=== PATIENT | male | born 1985 | race Caucasian/White ===

== ENCOUNTER 2021-05-19 15:22 | Emergency (ER) | payer OTHER ==
[~2021-05-19] VITALS: Ht 170.2 cm; Wt 75.0 kg
[2021-05-19 15:23] VITALS: BP 138/85
[2021-05-19] MEDS ORDERED: CYCL-707 PO (15:34)
[2021-05-19] MEDS ORDERED: IBUP80TA PO (15:34)
[2021-05-19] MEDS ORDERED: ACET1TAB55 PO (15:34)
[2021-05-19] MEDS ORDERED: MEDR4PAK PO (18:54)
== END 2021-05-19 19:40 | disposition home or self-care (01) ==
LOC: M ED 15:22
DX: M54.42 Lumbago with sciatica, left side (principal); Z79.899 Other long term (current) drug therapy

== ENCOUNTER 2021-05-22 11:14 | Emergency (ER) | payer OTHER ==
[~2021-05-22] VITALS: Ht 170.2 cm; Wt 75.9 kg
[~2021-05-22 11:14] MED LIST: ACET1TAB55 PO; CYCL-707 PO; IBUP80TA PO; MEDR4PAK PO
[2021-05-22 13:59] LABS: BASO % 0.3 % (0.0-1.0); EOS % 0.1 % (0.0-3.0); HEMOGLOBIN 18.3 g/dl (13.5-17.5); LYMPH # 0.8 10^3/uL (1.5-5.0); LYMPH % 8.9 % (24.0-44.0); MEAN CORPUSCULAR HEMOGLOBIN 31.1 pg (27.0-33.0); MEAN CORPUSCULAR HGB CONC 35.9 g/dl (32.0-36.5); MEAN CORPUSCULAR VOLUME 86.6 fl (80.0-96.0); MONO # 0.2 10^3/uL (0.0-0.8); MONO % 2.5 % (2.0-8.0); NEUTROPHILS # 7.6 10^3/uL (1.5-8.5); PLATELET COUNT, AUTOMATED 216 10^3/uL (150-450); RED BLOOD COUNT 5.89 10^6/uL (4.30-6.10); WHITE BLOOD COUNT 8.7 10^3/uL (4.0-10.0)
[2021-05-22 14:24] LABS: ERYTHROCYTE SEDIMENTATION RATE 1 mm/hr (0-15)
--- NOTE | 2021-05-22 16:27 | REPVR ---
PROCEDURE INFORMATION: Exam: MR Lumbar Spine Without Contrast. Exam date and time: 05/22/2021 3:50 PM Age: 36 years old Clinical indication: Low back pain; Additional info: Left radicular symptoms and l3l4 point tenderness TECHNIQUE: Imaging protocol: Multiplanar magnetic resonance images of the lumbar spine without contrast. COMPARISON: No relevant prior studies available. FINDINGS: Vertebrae: There appears to be a transitional vertebral segment. There is a rudimentary disc which will be labeled L5-S1. With this numbering scheme there is a large disc herniation at the L4-L5 level with a free fragment extending inferiorly from the disc space. An annular tear is apparent. The large disc fragment measures approximately 2.6 cm cc x 1.1 cm AP x 2.2 cm in width and extends inferiorly to the L5-S1 level. The disc herniation compresses the thecal sac and the exiting left L5 nerve root as well as the sacral nerve roots within the thecal sac displacing the thecal sac posteriorly and rightward. Since it extends to the L5-S1 level and also compresses the exiting left S1 nerve root. The remainder of the lumbar spine levels are normal in appearance. Spinal cord: The conus medullaris is normal appearance at the T12-L1 level. Discs/Spinal canal/Neural foramina: See "Vertebrae" finding. Soft tissues: Unremarkable. IMPRESSION: There is a very large left paracentral disc herniation at the L4-L5 level extending inferiorly to the L5-S1 level. There appear to be free disc fragments together measuring 2.6 x 1.1 x 2.2 cm. The disc herniation compresses the left L5 nerve root at the L4-L5 level and extending inferiorly to L5-5 S1 compresses the exiting left S1 nerve root as well as the thecal sac. Electronically signed by: Leilani Albert On 05/22/2021 16:26:36 PM
--- NOTE | 2021-05-22 16:29 | REPVR ---
PROCEDURE INFORMATION: Exam: MR Thoracic Spine Without Contrast Exam date and time: 05/22/2021 3:50 PM Age: 36 years old Clinical indication: Pain in thoracic spine; With radiculopathy; Left; Additional info: Left radicular symptoms and l3l4 point tenderness TECHNIQUE: Imaging protocol: Multiplanar magnetic resonance images of the thoracic spine without contrast. COMPARISON: No relevant prior studies available. FINDINGS: Vertebrae: Unremarkable. Spinal cord: Normal signal. No cord compression. Discs/Spinal canal/Neural foramina: No significant disc disease. No significant spinal canal stenosis. Soft tissues: Unremarkable. IMPRESSION: No abnormality is seen in the thoracic spine. Please see accompanying lumbar spine MRI report. Electronically signed by: Leilani Albert On 05/22/2021 16:29:08 PM
[2021-05-22] MEDS ORDERED: LYRI75CA PO (17:23)
[2021-05-22] MEDS ORDERED: PREGABALIN 75 MG CAP(LYRICA) PO ONE (17:35)
[2021-05-22 18:00] VITALS: BP 144/78
[2021-05-25 13:11] LABS: ANTINUCLEAR ANTIBODIES DIRECT Negative (Negative)
== END 2021-05-22 18:15 | disposition home or self-care (01) ==
LOC: M ED 11:14
DX: M51.26 Other intervertebral disc displacement, lumbar region (principal); M54.32 Sciatica, left side; M54.16 Radiculopathy, lumbar region

== ENCOUNTER → 2023-12-28 | Outpatient (REF) | payer OTHER ==
[~2023-12-28] MED LIST changes: +LYRI75CA PO
[2023-12-28 12:03] LABS: SEMEN APPEARANCE OPAQUE (OPAQUE); SEMEN VISCOSITY LIQUID (LIQUID); SEMEN VOLUME 3.7 ml (2.0-5.0); SEMEN pH 8.5 (7.0-8.0)
[2023-12-28 12:04] LABS: WBC CONCENTRATION <=1 M/ml (<=1 M/ml)
== END ==
LOC: M LAB REF 10:47
PROVIDERS: ATTEND Student in an Organized Health Care Education/Training Program
DX: Z98.52 Vasectomy status (principal)